=== PATIENT | female | born 1955 | race Hispanic/Latino ===

== ENCOUNTER 2017-06-02 10:52 | Emergency (ER) | payer BC ==
[2017-06-02 10:56] VITALS: BMI 30.9
[2017-06-02 10:57] VITALS: RESP 18; TEMP 98.3; O2SAT 100
[2017-06-02] MEDS ORDERED: Oxycodone/Acetaminophen 5/325 mg Tab PO STA (11:16)
--- NOTE | 2017-06-02 11:20 | ED PDOC ---
Arrival/HPI - General Chief Complaint: Rib Injury Time Seen by Provider: 06/02/17 11:08 Historian: Patient - History of Present Illness Narrative History of Present Illness (Text): 06/02/17 11:17 62yo female without any significant PMHx present with left sided lateral and anterior ribs pain x 4days. States pain started gradually after a relative gave her a bear hug on May 29. states she had a "popping" sound when he gave her the hug. Pain is worse today and constant. Worse with deep inspirations. She have been taking Tylenol without relieve. she denies chest pain, SOB, diaphoresis, abdominal pain, nausea, vomiting, ripping/tearing upper back pain. Past Medical History - Provider Review Nursing Documentation Reviewed: Yes - Infectious Disease Hx of Infectious Diseases: None - Tetanus Immunization Tetanus Immunization: Up to Date - Reproductive Menopause: Yes - Cardiac Hx Cardiac Disorders: No - Pulmonary Hx Respiratory Disorders: No - Neurological Hx Neurological Disorder: No - HEENT Hx HEENT Disorder: No (WEARS RX GLASSES) - Renal Hx Renal Disorder: No - Endocrine/Metabolic Hx Endocrine Disorders: No - Hematological/Oncological Hx Blood Transfusions: No Hx Blood Transfusion Reaction: No - Integumentary Hx Dermatological Disorder: No - Musculoskeletal/Rheumatological Hx Musculoskeletal Disorders: No Hx Falls: No - Gastrointestinal Hx Gastrointestinal Disorders: Yes (HEMICOLECTOMY FOR DEIVERTICULITIS AND GASTRIC BYPASS,2011,HERNIA REPAIR) Hx Colostomy: No Hx Diverticulitis: Yes Other/Comment: APPENDECTOMY - Genitourinary/Gynecological Hx Genitourinary Disorders: No - Psychiatric Hx Psychophysiologic Disorder: No Hx Depression: No Hx Emotional Abuse: No Hx Physical Abuse: No Hx Substance Use: No - Surgical History Hx Appendectomy: Yes Hx Gastric Bypass Surgery: Yes (with hernia repair) Other/Comment: colon-HEMICOLECTOMY WITH DIVERTICULITIS 2008 - Anesthesia Hx Anesthesia Reactions: No Hx Malignant Hyperthermia: No - Suicidal Assessment Feels Threatened In Home Enviroment: No Family/Social History - Physician Review Nursing Documentation Reviewed: Yes Family/Social History: Unknown Family HX Smoking Status: Never Smoked Hx Alcohol Use: Yes Hx Substance Use: No Hx Substance Use Treatment: No Allergies/Home Meds Allergies/Adverse Reactions: Allergies hydromorphone HCl [From Dilaudid] Allergy (Verified 10/22/15 13:42) SHORTNESS OF BREATH Sulfa (Sulfonamide Antibiotics) Allergy (Verified 10/22/15 13:42) SWELLING Review of Systems - Physician Review All systems were reviewed & negative as marked: Yes - Review of Systems Constitutional: Normal Eyes: Normal ENT: Normal Respiratory: Normal Cardiovascular: Normal Gastrointestinal: Normal Genitourinary Female: Normal Musculoskeletal: Arthralgias (Left ribs pain) Skin: Normal Neurological: Normal Endocrine: Normal Hemo/Lymphatic: Normal Psychiatric: Normal Physical Exam Vital Signs Reviewed: Yes Vital Signs Temp Pulse Resp BP Pulse Ox 06/02/17 12:12 75 18 128/71 100 06/02/17 10:53 98.3 F 80 18 132/78 100 Temperature: Afebrile Blood Pressure: Normal Pulse: Regular Respiratory Rate: Normal Appearance: Positive for: Well-Appearing, Non-Toxic, Comfortable Pain Distress: None Mental Status: Positive for: Alert and Oriented X 3 - Systems Exam Head: Present: Atraumatic, Normocephalic Pupils: Present: PERRL Extroacular Muscles: Present: EOMI Conjunctiva: Present: Normal Mouth: Present: Moist Mucous Membranes Neck: Present: Normal Range of Motion Respiratory/Chest: Present: Clear to Auscultation, Good Air Exchange, Tender to Palpation (Left lateral and anterior ribs pain). No: Respiratory Distress, Accessory Muscle Use, Wheezes, Decreased Breath Sounds, Rales, Retracting, Rhonchi, Tachypneic Cardiovascular: Present: Regular Rate and Rhythm, Normal S1, S2. No: Murmurs Abdomen: Present: Normal Bowel Sounds. No: Tenderness, Distention, Peritoneal Signs Back: Present: Normal Inspection Upper Extremity: Present: Normal Inspection. No: Cyanosis, Edema Lower Extremity: Present: Normal Inspection. No: Edema Neurological: Present: GCS=15, CN II-XII Intact, Speech Normal Skin: Present: Warm, Dry, Normal Color. No: Rashes Psychiatric: Present: Alert, Oriented x 3, Normal Insight, Normal Concentration Medical Decision Making ED Course and Treatment: 06/02/17 12:18 PT in ED for stated history. Her pain improved in ED with percocet. Left rib and chest xray - No active disease/No PTX PT's pain likley secondary to strain. she report surgical history of gastric by pass. she will be DC home with Percocet. Referred to her PMD. - RAD Interpretation Radiology Orders: 06/02/17 11:15 RIBS LEFT & PA CHEST [RAD] Stat - Medication Orders Current Medication Orders: Discontinued Medications Oxycodone/Acetaminophen (Percocet 5/325 Mg Tab) 1 tab PO STAT STA Stop: 06/02/17 11:17 Last Admin: 06/02/17 11:25 Dose: 1 tab MAR Pain Assessment Document 06/02/17 11:25 SF (Rec: 06/02/17 11:25 SF [facility] [id number]) Pain Reassessment Is this a pain reassessment? Yes Sleep Is patient sleeping during reassessment? No Presence of Pain Presence of Pain Yes Pain Scale Used Pain Scale Used Numeric Location Left, Right or Bilateral Left Upper or Lower Upper Description Description Intermittent Disposition/Present on Arrival - Present on Arrival Any Indicators Present on Arrival: No History of DVT/PE: No History of Uncontrolled Diabetes: No Urinary Catheter: No History of Decub. Ulcer: No History Surgical Site Infection Following: None - Disposition Have Diagnosis and Disposition been Completed?: Yes Diagnosis: Rib pain Disposition: HOME/ ROUTINE Disposition Time: 12:25 Patient Plan: Discharge Condition: STABLE Discharge Instructions (ExitCare): Chest Pain (ED) Additional Instructions: Take medication as directed Follow up with your doctor Return to ED for new or worsening symptoms Prescriptions: oxyCODONE/Acetaminophen [Percocet 5/325 mg Tab] 1 ea PO Q6 #8 tab Forms: [email or web address] ([place]i)
--- NOTE | 2017-06-02 12:15 | RAD ---
PROCEDURE: Radiographs of the Chest and Left Ribs. HISTORY: rib pain COMPARISON: None available. TECHNIQUE: Frontal radiograph of the chest and multiple oblique radiographs of the left ribs were obtained. FINDINGS: LEFT RIBS: No fracture or focal lesion visualized. LUNGS: Clear. PLEURA: No pneumothorax or pleural fluid. CARDIOVASCULAR: Normal sized heart. No pulmonary vascular congestion. OTHER FINDINGS: None. IMPRESSION: Unremarkable radiographs of the chest and left ribs. No left rib fracture.
[2017-06-02 12:28] VITALS: BP 126/80; PULSE 70
== END 2017-06-02 12:28 | disposition home or self-care (01) ==
LOC: ED 10:52
DX: R07.9 Chest pain, unspecified (principal)

== ENCOUNTER 2018-07-10 09:04 | Outpatient (CLI) | payer BC | END 2018-07-10 09:05 | disposition home or self-care (01) | LOC: RAD 09:04 | DX: Z13.820 Encounter for screening for osteoporosis (principal) ==